=== PATIENT | female | born 1980 | race Caucasian/White ===

== ENCOUNTER 2019-12-12 10:39 | Emergency (ER) | payer MEDICAID, OTHER ==
[~2019-12-12] VITALS: Ht 165.1 cm; Wt 83.9 kg
[2019-12-12 10:51] VITALS: BP 115/75
[2019-12-12] MEDS ORDERED: IBUPROFEN 800 MG TAB PO ONE (11:15)
== END 2019-12-12 12:03 | disposition home or self-care (01) ==
LOC: ER 10:39
DX: S63.501A Unspecified sprain of right wrist, initial encounter (principal); S01.531A Puncture wound without foreign body of lip, initial encounter; W01.0XXA Fall on same level from slipping, tripping and stumbling without subsequent striking against object, initial encounter; Y93.89 Activity, other specified; Y92.89 Other specified places as the place of occurrence of the external cause; Y99.8 Other external cause status
CPT/HCPCS: 73110